=== PATIENT | male | born 1960 | race African-American/Black ===

== ENCOUNTER 2019-05-07 10:38 | Emergency (ER) | payer MEDICAID ==
[~2019-05-07] VITALS: Ht 180.3 cm; Wt 145.0 kg
[~2019-05-07 10:38] MED LIST: ATOR40TA70 PO; DILT240C94 PO; DOCU-150 PO; DOLU50TA PO; EMTR1TAB11 PO; ENAL1TAB10 PO; IBUP-2030 PO; METO-385 PO
[2019-05-07] MEDS ORDERED: SODIUM CHLORIDE 0.9% 1,000 ML IV ONE (11:22)
[2019-05-07] MEDS ORDERED: MORPHINE SULFATE 4 MG/ML CPJ (NOT FOR IM USE) IV STA (11:22)
[2019-05-07] MEDS ORDERED: ONDANSETRON HCL 4MG/2ML INJ IV STA (11:22)
[2019-05-07 12:09] LABS: BASOPHILS % 0.7 % (0.0-2.0); HEMATOCRIT. 44.7 % (42.0-52.0); HEMOGLOBIN. 15.3 g/dL (14.0-18.0); MEAN CORPUSCULAR HEMOGLOBIN 31.9 pg (28.0-32.0); MEAN CORPUSCULAR VOLUME 93.1 fL (80.0-94.0); MEAN PLATELET VOLUME 9.4 fl (7.4-10.4); MONOCYTES % 7.7 % (2.0-8.0); NEUTROPHILS % 72.6 % (40.0-76.0); PLATELET 246 x1000/uL (130-400)
[2019-05-07 12:10] LABS: CHLORIDE 110 mEq/L (98-107); PROTHROMBIN TIME 10.7 sec (9.6-11.0)
[2019-05-07] MEDS ORDERED: KETOROLAC 30MG/ML VIAL IV ONE (14:00)
[2019-05-07] MEDS ORDERED: OXYCODONE HCL/ACETAMINOPHEN 5/325MG TABLET PO ONE (14:30)
[2019-05-07] MEDS ORDERED: HYDRALAZINE 20MG/ML VIAL IV ONE (14:45)
[2019-05-07] MEDS ORDERED: IOHEXOL-300 100 ML BOTTLE ONE (15:27)
[2019-05-07 15:30] VITALS: BP 142/83
== END 2019-05-07 15:39 | disposition home or self-care (01) ==
LOC: ER 10:38
DX: S29.8XXA Other specified injuries of thorax, initial encounter (principal); S39.81XA Other specified injuries of abdomen, initial encounter; S16.1XXA Strain of muscle, fascia and tendon at neck level, initial encounter; S69.81XA Other specified injuries of right wrist, hand and finger(s), initial encounter; M25.562 Pain in left knee; M25.561 Pain in right knee; I10 Essential (primary) hypertension; E11.9 Type 2 diabetes mellitus without complications; I48.91 Unspecified atrial fibrillation; Z79.01 Long term (current) use of anticoagulants; Z88.8 Allergy status to other drugs, medicaments and biological substances; V43.52XA Car driver injured in collision with other type car in traffic accident, initial encounter; Y93.89 Activity, other specified; Y92.488 Other paved roadways as the place of occurrence of the external cause
CPT/HCPCS: 36415; 70450; 71045; 71260; 72125; 73130; 73562; 74177; 80053; 83690; 83880; 84484; 85025; 85610; 93005; 96374; 96375; 99285; J1885; J2270; J2405; J7030; Q9967